=== PATIENT | male | born 1980 | race Caucasian/White ===

== ENCOUNTER 2022-03-03 08:05 | Emergency (ER) | payer SELFPAY ==
[2022-03-03 08:20] VITALS: BMI 41.2
[2022-03-03 08:24] VITALS: BP 165/90; PULSE 109; RESP 20; TEMP 37.9; O2SAT 94; BMI 41.2
--- NOTE | 2022-03-03 08:38 | HMH.EDUTC ---
[facility] [place] Clinical Impression: Pharyngitis Qualifiers: Pharyngitis/tonsillitis etiology: unspecified etiology Qualified Code(s): J02.9 - Acute pharyngitis, unspecified Disposition: Home, Self-Care Condition on Discharge: Good Instructions: Strep Throat, DI for Strep Throat Additional Instructions: Drink plenty of fluids. Take tylenol or ibuprofen for pain or fever. Take the medications as directed. Follow up with your regular doctor. GO TO THE ER FOR ANY WORSENING SYMPTOMS Throw your tooth brush away and get a new one. Prescriptions: Amoxicillin/Potassium Clav [Amox-Clav 875-125 mg Tablet] 1 tab PO BID #20 tab Transmission Status: Received by [id number] Benzonatate [Benzonatate 100mg cap] 100 mg PO TIDP PRN #30 cap PRN Reason: Cough Transmission Status: Received by [id number] methylPREDNISolone [Medrol] 4 mg PO DIRECTED 6 Days #21 packet Transmission Status: [id number] Referrals: Provider,Referral, [Primary Care Provider] - Forms: Work/School Release Time of Disposition: 08:55 Medical Decision Making - Medical Records Medical records reviewed: No: I reviewed the patient's medical records. - Johnnie Inquiry Pt receiving controlled substance: No Vital Signs: 03/03/22 08:24 Temperature 100.3 F H Temperature Source Oral Pulse Rate [Left Radial] 109 H Respiratory Rate 20 Blood Pressure [Right Arm] 165/90 H Blood Pressure Mean [Right Arm] 115 02 Sat by Pulse Oximetry 94 L Oxygen Delivery Method Room Air - Lab Data Lab results reviewed: Yes: I reviewed the patient's lab results. Lab Results 03/03/22 08:27: Strep Scn Rapid Clinic Negative Orders (Tests/Meds): ORDERS Category Date Time Status Strep Screen Confirmation Stat Micro 03/03/22 08:27 Received Medical Decision Narrative: He refused a covid-19 test today. [facility] [place] - General Stated complaint: cough, sore throat, fever, body aches Time Seen by Provider: 03/03/22 08:38 Mode of Arrival: Ambulatory Source of Information: Patient Limitations: No Limitations Description of Symptoms (Recalled from Triage Doc. by RN): pt to [facility] c/o sore throat, body aches, chills and a fever x2 days. pt states he had 600mg ibuprofen at 0700. pt reports a positive strep test x2 weeks ago. pt denies n/v/d or soa. HEENT Symptoms (Recalled from RN notes): Yes Resp Symptoms (Recalled from RN notes): Yes Skin Symptoms (Recalled from RN notes): No MS Symptoms (Recalled from RN notes): No Functional Status (Recalled from RN notes): na - History of Present Illness Provider Complaint: He c/o sore throat and feeling bad for the past 2 days. He had similar symptoms about 2 weeks ago but he seemed to get better but his symptoms returned now. - Related Data Previous Rx's Medication Instructions Recorded Amoxicillin/Potassium Clav 1 tab PO BID #20 tab 03/03/22 [Amox-Clav 875-125 mg Tablet] Benzonatate [Benzonatate 100mg 100 mg PO TIDP PRN #30 cap 03/03/22 cap] methylPREDNISolone [Medrol] 4 mg PO DIRECTED 6 Days #21 03/03/22 packet Allergies Allergy/AdvReac Type Severity Reaction Status Date / Time No Known Allergies Allergy Verified 03/03/22 08:19 - Worker's Comp Is this a Worker's Comp case?: No [facility] History - Hepatitis A Screen Attestation statement:: This patient has been screened for Hepatitis A risk factors. I have reviewed the patient's past medical history: Yes ROS Obtained: Yes All systems reviewed & no additional complaints - Constitutional Constitutional: Reports as per HPI - Eyes Eyes: Denies eye discharge - ENT Ears, Nose, Mouth, and Throat: Reports as per HPI - Cardiovascular Cardiovascular: Denies chest pain - Respiratory Respiratory: Denies chest congestion, Reports cough Physical Exam - General General appearance: alert, in no apparent distress - Head Head exam: atraumatic, normocephalic, андрей
[2022-03-03 08:42] LABS: UTC Strep Screen (Rapid) Negative (Negative)
[2022-03-03 09:06] VITALS: BP 159/84; PULSE 99; RESP 20; TEMP 37.7; O2SAT 96
== END 2022-03-03 09:07 | disposition home or self-care (01) ==
PROVIDERS: Emergency Provider Nurse Practitioner Family
DX: J02.9 Acute pharyngitis, unspecified (principal)
CPT/HCPCS: 87880; 99212; G0463

== ENCOUNTER → 2022-11-22 12:59 | Outpatient (CLI) | payer SELFPAY ==
[2022-11-22 17:15] LABS: Amphetamine/Metha Screen,Urine Negative ng/ml (<1000); Barbiturates Screen,Urine Negative ng/ml (<200)
[2022-11-22 17:18] LABS: Cannabinoid Screen,Urine Positive ng/ml (<50); Cocaine Screen,Urine Negative ng/ml (<300)
[2022-11-22 17:19] LABS: Methadone Screen,Urine Negative ng/ml (<300)
[2022-11-22 17:20] LABS: Opiate Screen,Urine Positive ng/ml (<300); Phencyclidine Screen,Urine Negative ng/ml (<25)
[2022-11-22 17:43] LABS: Benzodiazepines Screen,Urine Negative ng/ml (<200)
== END ==
LOC: LAB.DROPOF 12:59
PROVIDERS: PCP Emergency Medicine; Visit Provider Emergency Medicine
DX: M54.16 Radiculopathy, lumbar region (principal)
CPT/HCPCS: 80305

== ENCOUNTER → 2023-01-19 11:30 | Outpatient (CLI) | payer SELFPAY ==
[2023-01-19 20:32] LABS: Barbiturates Screen,Urine Negative ng/ml (<200); Benzodiazepines Screen,Urine Negative ng/ml (<200)
[2023-01-19 20:33] LABS: Cannabinoid Screen,Urine Negative ng/ml (<50); Cocaine Screen,Urine Negative ng/ml (<300)
[2023-01-19 20:34] LABS: Methadone Screen,Urine Negative ng/ml (<300)
[2023-01-19 20:35] LABS: Phencyclidine Screen,Urine Negative ng/ml (<25)
[2023-01-19 21:04] LABS: Opiate Screen,Urine Positive ng/ml (<300)
[2023-01-20 00:24] LABS: Amphetamine/Metha Screen,Urine Negative ng/ml (<1000)
== END ==
LOC: LAB.DROPOF 01-20 09:10
PROVIDERS: PCP Emergency Medicine; Visit Provider Emergency Medicine
DX: Z79.899 Other long term (current) drug therapy (principal)
CPT/HCPCS: 80305

== ENCOUNTER → 2023-03-20 11:00 | Outpatient (CLI) | payer SELFPAY ==
[2023-03-20 19:26] LABS: Amphetamine/Metha Screen,Urine Negative ng/ml (<1000); Barbiturates Screen,Urine Negative ng/ml (<200)
[2023-03-20 19:28] LABS: Cocaine Screen,Urine Negative ng/ml (<300)
[2023-03-20 19:29] LABS: Benzodiazepines Screen,Urine Negative ng/ml (<200)
[2023-03-20 19:30] LABS: Cannabinoid Screen,Urine Negative ng/ml (<50); Phencyclidine Screen,Urine Negative ng/ml (<25)
[2023-03-20 19:31] LABS: Methadone Screen,Urine Negative ng/ml (<300); Opiate Screen,Urine Positive ng/ml (<300)
== END ==
LOC: LAB.DROPOF 03-21 10:09
PROVIDERS: PCP Emergency Medicine; Visit Provider Emergency Medicine
DX: M54.16 Radiculopathy, lumbar region (principal)
CPT/HCPCS: 80305

== ENCOUNTER → 2023-07-10 23:36 | Outpatient (CLI) | payer BC, SELFPAY ==
[2023-07-10 18:42] LABS: Basophils # 0.1 K/mm3 (0-0.2); Basophils % 1.5 % (0.1-2.0); Eosinophils # 0.2 K/mm3 (0.0-0.4); Eosinophils % 3.5 % (0.1-12.0); Hematocrit 52.4 % (42.0-52.0); Hemoglobin 17.6 g/dL (14.1-18.0); Lymphocytes # 2.1 K/mm3 (0.7-4.5); Mean Corpuscular HGB Conc 33.6 g/dL (31.8-35.4); Mean Corpuscular Hemoglobin 31.2 pg (27.0-31.2); Mean Corpuscular Volume 92.7 fl (80-94); Mean Platelet Volume 9.4 fl (7.4-10.4); Monocytes # 0.4 K/mm3 (0.1-1.0); Monocytes % 7.3 % (1.7-9.3); Neutrophils # 3.3 K/mm3 (1.8-7.8); Neutrophils % 53.9 % (37.0-80.0); Platelet Count 242 K/mm3 (142-424); Red Blood Count 5.66 M/mm3 (4.60-6.20); Red Cell Distribution Width 12.6 % (11.5-17.5); White Blood Count 6.1 K/mm3 (4.8-10.8)
[2023-07-10 19:06] LABS: Alanine Aminotransferase 40 U/L (12-78); Albumin Level 4.5 g/dl (3.5-5.0); Albumin/Globulin Ratio 1.6 (1.1-1.8); Alkaline Phosphatase 77 U/L (38-126); Anion Gap 10.8 mEq/L (5-15); Aspartate Amino Transferase 41 U/L (17-59); Bilirubin,Total 0.6 mg/dl (0.2-1.3); Blood Urea Nitrogen 14 mg/dl (9-20); Calcium 9.4 mg/dl (8.4-10.2); Carbon Dioxide 22 mmol/L (22.0-30.0); Chloride 108 mmol/L (98-107); Chol/HDL Ratio 4.1 (1-3.5); Cholesterol 138 mg/dl (140-200); Estimated Glomerular Filt Rate 92 ml/min (>60); GFR (African American) 111 ML/MIN (>60); Globulin 2.8 g/dL (1.3-3.2); Glucose 100 mg/dl (74-100); HDL Cholesterol 34 mg/dl (40-60); Potassium 4.8 mmoL/L (3.5-5.1); Sodium 136 mmol/L (136-145); Total Protein,Serum 7.3 g/dl (6.3-8.2); Triglycerides 116 mg/dl (30-150); VLDL Cholesterol 23 mg/dL (0-40)
[2023-07-10 19:17] LABS: Direct LDL Cholesterol 88.67 mg/dL (100-129)
[2023-07-10 19:23] LABS: 25-OH Vitamin D, Total 24.1 ng/mL (30-100)
[2023-07-10 20:10] LABS: Hemoglobin A1C 5.6 % (4.0-6.0)
[2023-07-10 20:26] LABS: Amphetamine/Metha Screen,Urine Negative ng/ml (<1000); Barbiturates Screen,Urine Negative ng/ml (<200); Benzodiazepines Screen,Urine Negative ng/ml (<200); Cannabinoid Screen,Urine Positive ng/ml (<50); Cocaine Screen,Urine Negative ng/ml (<300); Methadone Screen,Urine Negative ng/ml (<300); Opiate Screen,Urine Positive ng/ml (<300); Phencyclidine Screen,Urine Negative ng/ml (<25)
[2023-07-10 20:36] LABS: Creatinine,Urine Random 195 mg/dL (Not Estab.)
[2023-07-10 21:07] LABS: Microalbumin/Creatinine Ratio 3.3
[2023-07-12 05:20] LABS: HIV Screen 4th Generation wRfx Non Reactive (Non Reactive)
[2023-07-12 07:37] LABS: HBsAg Screen Negative (Negative); HCV Ab Non Reactive (Non Reactive); Hep A Ab, IGM Negative (Negative); Hep B Core Ab, IgM Negative (Negative)
== END ==
PROVIDERS: PCP Internal Medicine; Visit Provider Internal Medicine
DX: Z79.899 Other long term (current) drug therapy (principal); E55.9 Vitamin D deficiency, unspecified; R53.83 Other fatigue; Z68.38 Body mass index [BMI] 38.0-38.9, adult
CPT/HCPCS: 80053; 80061; 80074; 80305; 82043; 82306; 82570; 83036; 85025; 86703; G0432

== ENCOUNTER → 2023-07-13 09:37 | Outpatient (CLI) | payer BC, SELFPAY ==
--- NOTE | 2023-07-13 09:42 | XR_ITS ---
FINAL REPORT CLINICAL HISTORY: pain in knee FINDINGS: Left knee Two views were obtained. There is no acute fracture or dislocation. The joint spaces appear normal. There is a small exostosis in the medial distal femoral metaphysis measuring 1.4 cm. IMPRESSION: No acute process. Reviewed, Interpreted and Dictated by Juan Quintana MD Transcribed by Estrellita Blackwood Authenticated and [facility]
--- NOTE | 2023-07-13 09:42 | XR_ITS ---
FINAL REPORT CLINICAL HISTORY: pain in left shoulder FINDINGS: Left shoulder Three views were obtained. There is no acute fracture or dislocation. The joint spaces appear normal. No soft tissue abnormality is identified. IMPRESSION: No acute process. Reviewed, Interpreted and Dictated by Juan Quintana MD Transcribed by Estrellita Blackwood Authenticated and [facility]
--- NOTE | 2023-07-13 09:42 | XR_ITS ---
FINAL REPORT CLINICAL HISTORY: pain in left hip x 20 yrs FINDINGS: Left hip Four views were obtained. There is no acute fracture or dislocation. The joint spaces appear normal. No soft tissue abnormality is identified. IMPRESSION: No acute process. Reviewed, Interpreted and Dictated by Juan Quintana MD Transcribed by Estrellita Blackwood Authenticated and [facility]
== END ==
LOC: RAD 09:40
PROVIDERS: PCP Internal Medicine; Visit Provider Internal Medicine
DX: M25.512 Pain in left shoulder (principal); M25.552 Pain in left hip; M25.562 Pain in left knee; M54.2 Cervicalgia
CPT/HCPCS: 73030; 73502; 73560

== ENCOUNTER 2023-07-24 09:48 | Outpatient (CLI) | payer BC, SELFPAY | END 2023-07-24 23:59 | LOC: RT 09:49 | PROVIDERS: PCP Internal Medicine; Visit Provider Physician Assistant | DX: R00.2 Palpitations (principal); I10 Essential (primary) hypertension; G47.33 Obstructive sleep apnea (adult) (pediatric); E66.9 Obesity, unspecified; Z68.39 Body mass index [BMI] 39.0-39.9, adult; Z72.0 Tobacco use | CPT/HCPCS: 93270 ==

== ENCOUNTER 2023-08-06 12:29 | Outpatient (CLI) | payer BC, SELFPAY ==
[2023-08-06 12:30] LABS: Coronavirus 19, PCR Not Detected (NotDetected); Influenza A, PCR Not Detected (NotDetected)
[2023-08-06 13:05] LABS: Influenza B, PCR Detected (NotDetected)
== END 2023-08-06 23:59 ==
LOC: LAB.DROPOF 12:29
PROVIDERS: PCP Internal Medicine; Visit Provider Internal Medicine
DX: R05.9 Cough, unspecified (principal); R51.9 Headache, unspecified; R09.89 Other specified symptoms and signs involving the circulatory and respiratory systems; J10.1 Influenza due to other identified influenza virus with other respiratory manifestations
CPT/HCPCS: 87636

== ENCOUNTER 2023-11-22 09:07 | Outpatient (CLI) | payer BC, SELFPAY ==
[2023-11-22 10:55] VITALS: BMI 39.3
== END 2023-11-22 23:59 | disposition home or self-care (01) ==
LOC: DIETICIAN 09:08
PROVIDERS: PCP Internal Medicine; Visit Provider Internal Medicine
DX: Z71.3 Dietary counseling and surveillance (principal); E66.9 Obesity, unspecified; Z68.39 Body mass index [BMI] 39.0-39.9, adult
CPT/HCPCS: 97802

== ENCOUNTER 2023-12-28 15:50 | Outpatient (CLI) | payer BC, SELFPAY | END 2023-12-28 23:59 | disposition home or self-care (01) | PROVIDERS: PCP Internal Medicine; Visit Provider Internal Medicine Pulmonary Disease | DX: R06.81 Apnea, not elsewhere classified (principal) | CPT/HCPCS: 94762 ==

== ENCOUNTER 2024-01-02 10:08 | Outpatient (CLI) | payer BC, SELFPAY ==
[2024-01-02 19:14] LABS: Chol/HDL Ratio 4.5 (1-3.5); Cholesterol 152 mg/dl (140-200); HDL Cholesterol 34 mg/dl (40-60); Triglycerides 292 mg/dl (30-150); VLDL Cholesterol 58 mg/dL (0-40)
[2024-01-02 19:25] LABS: Direct LDL Cholesterol 90.38 mg/dL (100-129)
[2024-01-02 20:29] LABS: 25-OH Vitamin D, Total 29.7 ng/mL (30-100)
== END 2024-01-02 23:59 | disposition home or self-care (01) ==
LOC: LAB.DROPOF 01-03 10:08
PROVIDERS: PCP Internal Medicine; Visit Provider Internal Medicine
DX: I10 Essential (primary) hypertension (principal); E66.3 Overweight; Z68.27 Body mass index [BMI] 27.0-27.9, adult; E55.9 Vitamin D deficiency, unspecified; F17.200 Nicotine dependence, unspecified, uncomplicated
CPT/HCPCS: 80061; 82306

== ENCOUNTER 2024-01-22 07:43 | Outpatient (CLI) | payer BC, SELFPAY ==
[2024-01-22 08:30] VITALS: PULSE 84; PULSE 89
[2024-01-22] MEDS: ALBUTEROL 0.083% 2.5 MG/3 ML NEB IH (08:30)
== END 2024-01-22 23:59 | disposition home or self-care (01) ==
LOC: RT 07:44
PROVIDERS: PCP Internal Medicine; Visit Provider Internal Medicine Pulmonary Disease
DX: R06.09 Other forms of dyspnea (principal)
CPT/HCPCS: 94060; 94618; 94640; 94726; 94729; J7613

== ENCOUNTER 2024-07-22 10:20 | Outpatient (CLI) | payer BC, SELFPAY ==
[2024-07-22 18:16] LABS: Chol/HDL Ratio 3.8 (1-3.5); Cholesterol 109 mg/dl (140-200); HDL Cholesterol 29 mg/dl (40-60); Triglycerides 236 mg/dl (30-150); VLDL Cholesterol 47 mg/dL (0-40)
[2024-07-22 18:27] LABS: Direct LDL Cholesterol 56.38 mg/dL (100-129)
[2024-07-22 18:36] LABS: 25-OH Vitamin D, Total 34.5 ng/mL (30-100)
[2024-07-22 18:38] LABS: Hemoglobin A1C 5.9 % (4.0-6.0)
== END 2024-07-22 23:59 | disposition home or self-care (01) ==
LOC: LAB.DROPOF 07-24 08:24
PROVIDERS: PCP Internal Medicine; Visit Provider Internal Medicine
DX: Z13.1 Encounter for screening for diabetes mellitus (principal); E78.1 Pure hyperglyceridemia; E66.3 Overweight; Z68.29 Body mass index [BMI] 29.0-29.9, adult
CPT/HCPCS: 80061; 82306; 83036

== ENCOUNTER 2024-07-24 09:45 | Outpatient (CLI) | payer BC, SELFPAY ==
--- NOTE | 2024-07-24 09:46 | US_ITS ---
FINAL REPORT CLINICAL HISTORY: Hypertension COMPARISON: None FINDINGS: RENAL ULTRASOUND Ultrasound images of the kidneys were obtained. Limited images of the liver parenchyma demonstrate normal echogenicity. The right kidney measures 11.4 cm in length. It is normal echogenicity. There is no hydronephrosis. The left kidney measures 12.6 cm in length. It is normal echogenicity. There is no hydronephrosis. IMPRESSION: Normal renal ultrasound. Reviewed, Interpreted and Dictated by Juan Quintana MD Transcribed by Lalita Disla Authenticated and [facility]
== END 2024-07-24 23:59 | disposition home or self-care (01) ==
LOC: RAD 09:46
PROVIDERS: PCP Internal Medicine; Visit Provider Internal Medicine
DX: I70.1 Atherosclerosis of renal artery (principal)
CPT/HCPCS: 76770